=== PATIENT | female | born 1965 | race Caucasian/White ===

== ENCOUNTER → 2020-01-15 | Outpatient (CLI) | payer OTHER ==
[~2020-01-15] MED LIST: ASMANEX220 MC1 INH; CENTRUM SILVER1 EAC4 PO; FLAX SEED OIL1000 MG PO; NORCO 5-325 TA1 EACH PO; OMEPRAZOLE 20 M20 M1 PO; PROZAC20 MG PO; VENTOLIN HFA 1818 GM INH; VITAMIN B-12500 MCG PO; ZYRTEC10 MG PO
== END ==
LOC: CAT 15:54
PROVIDERS: ATTEND Neuromusculoskeletal Medicine & OMM
DX: Z13.6 Encounter for screening for cardiovascular disorders (principal); I25.10 Atherosclerotic heart disease of native coronary artery without angina pectoris; E78.00 Pure hypercholesterolemia, unspecified